=== PATIENT | female | born 1970 | race Caucasian/White ===

== ENCOUNTER 2019-01-12 08:02 | Emergency (ER) | payer OTHER ==
[2019-01-12 08:09] VITALS: BP 132/73; PULSE 72; TEMP 99.1; BMI 26.1
--- NOTE | 2019-01-12 08:21 | PDOC ---
History of Present Illness - General Chief Complaint: Back Pain Stated Complaint: BACK PAIN/ NECK PAIN Time Seen by Provider: 01/12/19 08:12 History Source: Patient - History of Present Illness Initial Comments: 01/12/19 08:19 Patient with history of Crohn's disease present with complaint of posterior neck and lower back pain status post heavy lifting yesterday and feeling a cracking sound and lower back yesterday. Reports increased pain from getting up from sitting position to lower back even though pain improved today from yesterday. Patient did not take anything for pain Occurred: reports: yesterday Past History - Past Medical History Allergies/Adverse Reactions: Allergies Allergy/AdvReac Type Severity Reaction Status Date / Time No Known Allergies Allergy Verified 01/12/19 08:56 Home Medications: Ambulatory Orders Methocarbamol [Robaxin -] 500 mg PO BID PRN #14 tablet 01/12/19 Naproxen 500 mg PO BID PRN #20 tablet 01/12/19 COPD: No Other medical history: Khrons, vertigo - Suicide/Smoking/Psychosocial Hx Smoking History: Former smoker Have you smoked in the past 12 months: Yes If you are a former smoker, when did you quit?: 09/2018 Information on smoking cessation initiated: No Hx Alcohol Use: No Drug/Substance Use Hx: No Review of Systems - Review of Systems Able to Perform ROS?: Yes Is the patient limited Cymraes proficient: No Constitutional: No: Malaise, Weakness HEENTM: No: Symptoms Reported Respiratory: No: Symptoms reported Cardiac (ROS): No: Symptoms Reported Musculoskeletal: Yes: Symptoms Reported, Back Pain, Muscle Pain (posterior neck and lower back), Neck Pain, Joint Stiffness (neck). No: Muscle Weakness Neurological: No: Headache, Numbness, Paresthesia, Dizziness All Other Systems: Reviewed and Negative *Physical Exam - Vital Signs Last Vital Signs Temp Pulse Resp BP Pulse Ox 99.1 F 72 16 132/73 97 01/12/19 08:06 01/12/19 08:06 01/12/19 08:06 01/12/19 08:06 01/12/19 08:06 - Physical Exam Comments: 01/12/19 08:18 GENERAL: Well developed, well nourished. Awake and alert. No acute distress. PULMONARY: No evidence of respiratory distress. MUSCULOSKELETAL : mild tenderness over posterior paravertebral muscle of lumbar spine of L2-L5 on bilateral sides. Mild tenderness to posterior cervical spine over C5. Free range of motion of cervical spine. No bony deformities SKIN: Warm and dry. Normal capillary refill. NEUROLOGICAL: Alert, awake, appropriate. No motor deficits in the lower extremities. Gait is normal without ataxia. PSYCHIATRIC: Cooperative. Good eye contact. Appropriate mood and affect. General Appearance: Yes: Nourished, Appropriately Dressed. No: Apparent Distress ED Treatment Course - RADIOLOGY Radiology Studies Ordered: Category Date Time Status SPINE-CERVICAL [RAD] Stat Radiology 01/12/19 08:16 Ordered SPINE-LUMBAR SACRAL [RAD] Stat Radiology 01/12/19 08:16 Ordered Medical Decision Making - Medical Decision Making 01/12/19 08:20 Patient with history of Crohn's disease present with complaint of posterior neck and lower back pain status post heavy lifting yesterday and feeling a cracking sound and lower back yesterday. Reports increased pain from getting up from sitting position to lower back even though pain improved today from yesterday. Patient did not take anything for pain Exam significant for mild tenderness over posterior cervical spine and bilateral lower vertebral muscle of lower lumbar spine. Free range of motion of neck. Symptoms likely back and neck strain. X-ray of cervical and lumbar spine ordered to rule out acute pathology 01/12/19 09:06 X-ray of cervical spine and lumbosacral shows straightening of the spine otherwise normal x-ray. Naproxen 500 mg by mouth ordered for pain. Patient be discharged home on naproxen and Robaxin when necessary for pain and spasm with orthopedist bite follow-up *DC/Admit/Observation/Transfer Diagnosis at time of Disposition: Low back strain Qualifiers: Encounter type: initial encounter Qualified Code(s): S39.012A - Strain of muscle, fascia and tendon of lower back, initial encounter Neck muscle strain Qualifiers: Encounter type: initial encounter Qualified Code(s): S16.1XXA - Strain of muscle, fascia and tendon at neck level, initial encounter - Discharge Dispostion Disposition: HOME Condition at time of disposition: Stable Decision to Admit order: No - Prescriptions Prescriptions: Methocarbamol [Robaxin -] 500 mg PO BID PRN #14 tablet PRN Reason: Back Pain Naproxen 500 mg PO BID PRN #20 tablet PRN Reason: Back Pain - Referrals Referrals: Gm Edouard MD, FA[facility] [Staff Physician] - - Patient Instructions Printed Discharge Instructions: DI for Back Strain or Sprain Additional Instructions: Your x-ray of the neck and back shows no acute fracture or dislocation. X-ray shows spasm of the spine. Take prescribed medication as needed for pain and spasm. Apply hot compresses to lower back 2-3 times a day for 5-10 minutes as needed for pain. Follow-up referred orthopedics spine if no improvement in 4 days. No heavy lifting for the next 2 to 3 days - Post Discharge Activity Forms/Work/School Notes: Back to Work
[2019-01-12] MEDS ORDERED: NAPROXEN 500 MG TABLET (FP) PO ONE (08:53)
== END 2019-01-12 09:00 | disposition home or self-care (01) ==
LOC: JERFT 08:02
DX: S39.012A Strain of muscle, fascia and tendon of lower back, initial encounter (principal); S16.1XXA Strain of muscle, fascia and tendon at neck level, initial encounter; Z87.891 Personal history of nicotine dependence; X50.0XXA Overexertion from strenuous movement or load, initial encounter; Y93.89 Activity, other specified; Y92.9 Unspecified place or not applicable
CPT/HCPCS: 72050-TC-FY; 72100-TC-FY; 99282-25

== ENCOUNTER 2021-02-24 11:50 | Emergency (ER) | payer OTHER ==
[2021-02-24 12:26] VITALS: BP 120/83; PULSE 85; TEMP 98.3; BMI 25.7
== END 2021-02-24 13:15 | disposition home or self-care (01) ==
LOC: JER 11:50
DX: Z11.52 Encounter for screening for COVID-19 (principal)
CPT/HCPCS: 99283-25; C9803; U0003; U0005